=== PATIENT | male | born 1990 | race Caucasian/White ===

== ENCOUNTER 2018-06-15 08:49 | Emergency (ER) | payer OTHER ==
--- NOTE | 2018-06-15 09:26 | PDOC ---
History of Present Illness - General Chief Complaint: Injury Stated Complaint: INJURY Time Seen by Provider: 06/15/18 09:01 History Source: Patient Exam Limitations: No Limitations - History of Present Illness Initial Comments: Patient is a 28-year-old male who states that he twisted his right ankle yesterday while playing basketball. Patient describes the pain as a throb, worse with ambulation and rates it a 2 out of 10. Patient denies attempting [id number] medications. He states that there are no relieving factors. 06/15/18 09:22 Past History - Travel Traveled outside of the country in the last 30 days: No Close contact w/someone who was outside of country & ill: No - Past Medical History Allergies/Adverse Reactions: Allergies Allergy/AdvReac Type Severity Reaction Status Date / Time No Known Allergies Allergy Verified 06/15/18 08:57 Home Medications: Ambulatory Orders NK [No Known Home Medication] 06/15/18 COPD: No - Suicide/Smoking/Psychosocial Hx Smoking Status: No Smoking History: Never smoked Have you smoked in the past 12 months: No Number of Cigarettes Smoked Daily: 0 Information on smoking cessation initiated: No Hx Alcohol Use: No Drug/Substance Use Hx: No Substance Use Type: None Review of Systems - Review of Systems Able to Perform ROS?: Yes Is the patient limited Serbian proficient: Yes All Other Systems: Reviewed and Negative *Physical Exam - Vital Signs Last Vital Signs Temp Pulse Resp BP Pulse Ox 98.3 F 99 H 18 115/60 100 06/15/18 08:58 06/15/18 08:58 06/15/18 08:58 06/15/18 08:58 06/15/18 08:58 - Physical Exam Comments: Constitutional: VS stated, pt appears in no apparent distress; ambulated to examination room, steady gait noted. Skin: Warm and dry. Intact, no lesions or excoriations. Head: Normocephalic; atraumatic Eyes: conjunctiva pink without injection or discharge. Throat: Oropharynx with pink and moist mucosa. Lungs: Bilateral breath sounds clear upon auscultation. No adventitious breath sounds. Heart: Regular rate and rhythm, S1/S2 auscultated. No murmurs, rubs, or gallops. No visible pulsations, heaves, or lifts on precordium. Musculoskeletal: Focused on the right ankle. No deformity. No pain upon palpation to the medial or lateral malleolus. Patient can dorsiflex and plantar flex without difficulty. Pedal pulses present, cap refill less than 2 seconds, sensation intact. Neurologic: Awake, alert. Conversation fluent Psychiatric: Appropriate affect. 06/15/18 09:23 ED Treatment Course - RADIOLOGY Radiology Studies Ordered: Category Date Time Status ANKLE-RIGHT [RAD] Stat Radiology 06/15/18 09:05 Taken 06/15/18 09:25 Patient's right ankle x-ray was reviewed by myself as negative. Braydon wrap is applied right ankle. Patient declined need for crutches. *DC/Admit/Observation/Transfer Diagnosis at time of Disposition: Ankle sprain - Discharge Dispostion Disposition: HOME Condition at time of disposition: Stable Decision to Admit order: No - Referrals - Patient Instructions Printed Discharge Instructions: How to Prevent Falls Additional Instructions: Braydon wrap on for comfort measures. Elevate. Ibuprofen 600 mg every 6 hours for pain. Follow-up with your PCP. - Post Discharge Activity
[2018-06-15 09:31] VITALS: BP 115/60; PULSE 99; TEMP 98.3; BMI 27.6
== END 2018-06-15 09:35 | disposition home or self-care (01) ==
LOC: JER 08:49
DX: S93.401A Sprain of unspecified ligament of right ankle, initial encounter (principal); X50.1XXA Overexertion from prolonged static or awkward postures, initial encounter; Y93.67 Activity, basketball; Y92.310 Basketball court as the place of occurrence of the external cause; Y99.8 Other external cause status
CPT/HCPCS: 73610-TC-RT-FY; 99281-25